=== PATIENT | female | born 1980 | race Caucasian/White ===

== ENCOUNTER 2016-07-13 16:52 | Emergency (ER) | payer OTHER ==
[~2016-07-13] VITALS: Ht 170.2 cm; Wt 82.7 kg
[~2016-07-13 16:52] MED LIST: SERT50TA PO
[2016-07-13 17:20] VITALS: BP 152/79
[2016-07-13] MEDS ORDERED: RABIES IMMUNE GLOBULIN/PF 150 UNITS/ML, 2ML IM ONE (18:00)
[2016-07-13] MEDS ORDERED: RABIES VACCINE /PF 2.5 UNITS IM-VACC ONE (18:00)
== END 2016-07-13 19:49 | disposition home or self-care (01) ==
LOC: ED 18:15
DX: Z23 Encounter for immunization (principal); Z90.49 Acquired absence of other specified parts of digestive tract
CPT/HCPCS: 90375; 90471; 90675; 96372

== ENCOUNTER 2016-07-16 12:04 | Emergency (ER) | payer OTHER ==
[~2016-07-16] VITALS: Ht 170.2 cm; Wt 82.7 kg
[2016-07-16 12:24] VITALS: BP 123/76
[2016-07-16] MEDS ORDERED: RABIES VACCINE /PF 2.5 UNITS IM-VACC ONE (13:00)
== END 2016-07-16 15:05 | disposition home or self-care (01) ==
LOC: ED 12:52
DX: Z23 Encounter for immunization (principal); Z90.49 Acquired absence of other specified parts of digestive tract
CPT/HCPCS: 90471; 90675

== ENCOUNTER → 2016-08-18 | Outpatient (CLI) | payer OTHER | END | disposition home or self-care (01) | LOC: CFH 13:18 | PROVIDERS: ATTEND Obstetrics & Gynecology | DX: N63 Unspecified lump in breast (principal); N64.4 Mastodynia; Z80.3 Family history of malignant neoplasm of breast | CPT/HCPCS: 76641; G0204 ==